=== PATIENT | male | born 1995 | race Caucasian/White ===

== ENCOUNTER 2021-09-13 17:30 | Emergency (ER) | payer SELFPAY ==
[2021-09-13 17:37] VITALS: BP 117/61; PULSE 80; RESP 16; TEMP 36.7; O2SAT 97
--- NOTE | 2021-09-13 18:35 | ED.GENADULT ---
HPI - General Adult General Chief complaint: Unspecified Stated complaint: headache, seizure coming on? Time Seen by Provider: 09/13/21 18:35 History of Present Illness HPI narrative: Patient is a 26-year-old male complaining of a migraine headache, 6 out of 10, frontal head, accompanied by photophobia that started today. Patient states that he has a history of seizure but has not had one in the last 10 years and not on any seizure medication. Patient is worried that he might have had a seizure due to the above symptoms. Patient states that he just wants to make sure and that is why he is here. Patient denies any dizziness, speech or visual disturbance, weakness, numbness, unsteady gait, chest pain, shortness of breath, abdominal pain, nausea, vomiting, diarrhea, fever or chills. Related Data Allergies Allergy/AdvReac Type Severity Reaction Status Date / Time Penicillins Allergy Unknown Verified 09/13/21 18:55 Review of Systems Review of Systems: All systems reviewed & are unremarkable except as noted in HPI and below Constitutional: Constitutional: Denies body ache(s), Denies chills, Denies excessive sweating, Denies fatigue, Denies fever(s), Denies lethargy, Denies malaise, Denies weakness and Denies weight loss Eyes: Eyes: Denies blurry vision, Denies change in vision and Denies loss of vision ENT: Denies dizziness, Denies ear discharge, Denies headache(s), Denies lip swelling, Denies epistaxis, Denies nasal congestion, Denies neck pain, Denies throat swelling and Denies tongue swelling Cardiovascular: Cardiovascular: Denies chest pain, Denies chest pain at rest, Denies chest pain with activity, Denies diaphoresis, Denies rapid heart rate, Denies edema, Denies irregular heart rhythm, Denies lightheadedness, Denies palpitations, Denies dyspnea and Denies dyspnea on exertion Respiratory: Respiratory: Denies chest congestion, Denies cough, Denies hemoptysis, Denies dyspnea and Denies dyspnea on exertion Gastrointestinal: Gastrointestinal: Denies abdominal pain, Denies melena, Denies hematochezia, Denies diarrhea, Denies nausea, Denies vomiting and Denies hematemesis Musculoskeletal: Musculoskeletal: Denies abnormal gait, Denies deformity, Denies joint swelling, Denies limited range of motion, Denies neck pain and Denies numbness Neurologic: Denies Abnormal speech present, Denies abnormal gait, Denies confusion, Denies dizziness, Denies focal weakness, Denies loss of vision, Denies numbness, Denies Other visual disturbances, Denies Sensory deficit (Neuro) and Denies weakness Psychiatric: Psychiatric: Denies confusion, Denies depression, Denies auditory hallucinations, Denies homicidal ideation and Denies suicidal ideation Endocrine: Endocrine: Denies cold intolerance, Denies excessive sweating, Denies fatigue, Denies heat intolerance and Denies palpitations Hematologic/Lymphatic: Hematologic/Lymphatic: Denies easy bleeding and Denies easy bruising Allergic/Immunologic: Allergic/Immunologic: Denies lip swelling, Denies throat swelling and Denies tongue swelling PMFSH Comments Past medical history: None Family history: None Social history: Non-smoker no EtOH or drug use Exam Const: General: cooperative, healthy appearing, comfortable, no acute distress, well developed, alert and awake; No confusion Orientation/consciousness: oriented to person, oriented to place, oriented to time, patient oriented x3 and No confusion Limitations: no limitations HENMT: Head: normal to inspection, normocephalic and atraumatic Ears: hearing grossly normal bilaterally, TM normal on the right and TM normal on the left General nose exam: Normal external nose present, Normal nares present and No nasal discharge present Face and sinus: normal facial exam Mouth: Yes Normal oral and palatal mucosa present, Yes lip normal, Yes tongue normal and Yes oropharynx normal Throat: posterior oropharynx normal, tonsils normal and uvula midline Eyes: General: appearanc
[2021-09-13] MEDS: LACTATED RINGERS 1,000 ML 999 ML IV CONT (19:05)
[2021-09-13] MEDS: METOCLOPRAMIDE HCL INJ 10 MG/2 ML VIAL (19:05)
[2021-09-13] MEDS: KETOROLAC 30 MG/ML VIAL (*BKC) (19:06)
[2021-09-13] MEDS: diphenhydrAMINE HCl INJ 50 MG/ML VIAL (19:06)
--- NOTE | 2021-09-13 19:21 | PC.NURSE ---
JUAREZ FROM DR NOE FOR TORADOL 30 MG IVP, REGLAN 10 MG IVP AND BENADRYL 25 MG IVP X1
[2021-09-13 19:34] LABS: Basophils Absolute Auto 0.1 K/mm3 (0.0-0.1); Basophils Percent Auto 0.9 % (0.2-1.2); Eosinophils Absolute Auto 0.3 K/mm3 (0-0.3); Hematocrit 37.8 % (42.0-52.0); Immature Granulocyte Absolute 0.02 K/mm3 (0.00-0.031); Immature Granulocyte Percent A 0.3 % (0-0.5); Lymphocytes Absolute Auto 0.29 K/mm3 (0.9-3.2); Lymphocytes Percent Auto 3.9 % (18.3-44.2); Mean Corpuscular HGB Conc 34.4 g/dl (32-36); Mean Corpuscular Hemoglobin 32.6 pg (26-34); Mean Corpuscular Volume 94.7 fl (80-100); Mean Platelet Volume 9.2 fl (7.4-10.4); Monocytes Absolute Auto 0.6 K/mm3 (0.1-0.6); Neutrophils Absolute Auto 6.2 K/mm3 (1.3-6.7); Neutrophils Percent Auto 82.9 % (45.5-73.1); Platelet Count Result 187 k/mm3 (150-375); Red Blood Count 3.99 M/mm3 (4.6-6.20); White Blood Count 7.5 K/mm3 (4.5-10.0)
[2021-09-13 19:41] LABS: Alanine Aminotransferase 88 U/L (4-50); Albumin Level 4.4 g/dL (3.5-5.1); Alkaline Phosphatase 58 U/L (38-126); Anion Gap 4 mmol/L (8-16); Aspartate Amino Transferase 75 U/L (17-59); Bilirubin,Total 0.5 mg/dL (0.2-1.3); Blood Urea Nitrogen 16 mg/dL (9-20); Calcium 9.2 mg/dL (8.4-10.2); Carbon Dioxide 23 mmol/L (22-30); Chloride 107 mmol/L (98-107); Estimated CRCL calculation 112 ml/min; Estimated Glomerular Filt Rate > 60; Glucose 106 mg/dL (65-110); Potassium 4.4 mmol/L (3.4-5.0); Sodium 134 mmol/L (137-145)
[2021-09-13 20:40] VITALS: BP 132/86; PULSE 88; RESP 15; O2SAT 99
--- NOTE | 2021-09-18 11:20 | PC.NURSE ---
LATE ENTRY This note is being entered to document information to the patient's record. The following information was omitted on [09/13/21], by [FELI Chance]. LR START AT 1838 END 193
== END 2021-09-13 21:05 | disposition home or self-care (01) ==
PROVIDERS: Emergency Provider Emergency Medicine
DX: R51.9 Headache, unspecified (principal)
CPT/HCPCS: 36415; 80053; 85025; 96374; 96375; 99284; J1200; J1885; J2765; J7120

== ENCOUNTER 2022-07-17 05:59 | Emergency (ER) | payer OTHER, SELFPAY ==
--- NOTE | ~2022-07-17 | CT_ITS ---
EXAMINATION: CT abdomen pelvis w con DATE: 07/17/2022 07:01 INDICATION: Abdominal pain TECHNIQUE: Computed tomography (CT) of the abdomen and pelvis was performed with 100 mL Omnipaque-350 intravenous contrast. Automated exposure control and iterative reconstruction technique were employe d. The dose-length product was 271.83 mGy-cm. COMPARISON: None FINDINGS: Lung bases are clear. Heart size is normal. No pericardial or pleural effusion. Liver, gallbladder, s pleen, pancreas, bilateral adrenal glands and kidneys are normal. Mild wall thickening of the bladder likely due to incomplete distention. Bowels including the appendix are normal. No free intraperitone al gas or fluid. No pathologically enlarged abdominal or pelvic lymphadenopathy. Bones are unremarkab le. IMPRESSION: 1. Mild bladder wall thickening likely due to incomplete distention but would correlate with urinalys is to exclude cystitis. 2. No other acute intra-abdominal/pelvic process. Normal appendix. Reviewed, dictated and finalized at location A. IMPRESSION: 1. Mild bladder wall thickening likely due to incomplete distention but would c orrelate with urinalysis to exclude cystitis. 2. No other acute intra-abdominal/pelvic process. Normal appendix.
[2022-07-17 06:05] VITALS: BP 130/85; PULSE 64; RESP 16; TEMP 36.6; O2SAT 100
--- NOTE | 2022-07-17 06:17 | ED.GENADULT ---
HPI - General Adult General Chief complaint: Abdominal Pain <Getachew Mobley MD - Last Filed: 07/17/22 06:35> Stated complaint: abdominal pain <Getachew Mobley MD - Last Filed: 07/17/22 06:35> Time Seen by Provider: 07/17/22 06:11 <Getachew Mobley MD - Last Filed: 07/17/22 06:35> History of Present Illness HPI narrative: Patient with 6-year-old gentleman who presents the emergency department with chief complaint of abdominal pain and nausea and vomiting and he woke up started having severe pain in his abdomen. Patient reports the pain is worse with movement and improved with rest. Reports the symptoms or not improved by anything. <Getachew Mobley MD - Last Filed: 07/17/22 06:35> Related Data Allergies/adverse reactions: Allergies Allergy/AdvReac Type Severity Reaction Status Date / Time Penicillins Allergy Unknown Verified 07/17/22 06:21 <Getachew Mobley MD - Last Filed: 07/17/22 06:35> Review of Systems Review of Systems: A 10 system review of systems was completed on the patient and is negative except for what is stated in the HPI. Nursing and ancillary documentation was reviewed. <Getachew Mobley MD - Last Filed: 07/17/22 06:35> Exam Narrative: GENERAL: Well-appearing, well-nourished, and in no acute distress. HEAD: Normocephalic, atraumatic. EYES: PERRLA and EOMI. ENT: Nares clear, no rhinorrhea or epistaxis. Mucous membranes moist. NECK: Supple. CHEST: Clear to auscultation. No respiratory distress. HEART: Regular rate and rhythm. No murmur heard. Normal peripheral pulses. ABDOMEN: Soft, tender to palpation lower quadrants of the abdomen, nondistended, normal active bowel sounds. EXTREMITIES: Normal range of motion. No edema. SKIN: Warm, dry, no rash. NEURO: No focal deficits. Alert and oriented x3. PSYCH: Normal mood and affect. <Getachew Mobley MD - Last Filed: 07/17/22 06:35> Course Course Emergency Course: Laboratory studies have been ordered CT scan of the abdomen pelvis and urinalysis also been ordered. Normal saline bolus has been ordered and antiemetics and antispasmodics have also been ordered. I will be signing out care to the day provider for final diagnosis and disposition <Getachew Mobley MD - Last Filed: 07/17/22 06:35> Vital Signs Vital signs: Vital Signs Temperature 36.6 C 07/17/22 06:05 Pulse Rate 64 07/17/22 06:05 Respiratory Rate 16 07/17/22 06:05 Blood Pressure 130/85 07/17/22 06:05 Pulse Oximetry 100 07/17/22 06:05 Oxygen Delivery Room Air 07/17/22 06:05 Temperature 36.6 C 07/17/22 06:05 Pulse Rate 42 L 07/17/22 09:59 Respiratory Rate 18 07/17/22 09:59 Blood Pressure 109/61 07/17/22 09:59 Pulse Oximetry 99 07/17/22 09:59 Oxygen Delivery Room Air 07/17/22 06:05 <Getachew Mobley MD - Last Filed: 07/17/22 06:35> Vital Signs Temperature 36.6 C 07/17/22 06:05 Pulse Rate 64 07/17/22 06:05 Respiratory Rate 16 07/17/22 06:05 Blood Pressure 130/85 07/17/22 06:05 Pulse Oximetry 100 07/17/22 06:05 Oxygen Delivery Room Air 07/17/22 06:05 Temperature 36.6 C 07/17/22 06:05 Pulse Rate 42 L 07/17/22 09:59 Respiratory Rate 18 07/17/22 09:59 Blood Pressure 109/61 07/17/22 09:59 Pulse Oximetry 99 07/17/22 09:59 Oxygen Delivery Room Air 07/17/22 06:05 <Micheal Santana MD - Last Filed: 07/17/22 10:38> Medical Decision Making Vital Signs Vital Signs: Vital Signs Temperature 36.6 C 07/17/22 06:05 Pulse Rate 64 07/17/22 06:05 Respiratory Rate 16 07/17/22 06:05 Blood Pressure 130/85 07/17/22 06:05 Pulse Oximetry 100 07/17/22 06:05 Oxygen Delivery Room Air 07/17/22 06:05 Temperature 36.6 C 07/17/22 06:05 Pulse Rate 42 L 07/17/22 09:59 Respiratory Rate 18 07/17/22 09:59 Blood Pressure 109/61 07/17/22 09:59 Pulse Oximetry 99 07/17
[2022-07-17] MEDS: ONDANSETRON INJ 4 MG/2 ML VIAL IV PUSH (06:20)
[2022-07-17] MEDS: SODIUM CHLORIDE 0.9% IV 1,000 ML 999 ML IV CONT (06:22)
[2022-07-17 06:30] LABS: Basophils Absolute Auto 0.1 K/mm3 (0.0-0.1); Basophils Percent Auto 0.4 % (0.2-1.2); Eosinophils Absolute Auto 0.3 K/mm3 (0-0.3); Eosinophils Percent Auto 1.9 % (0-4.4); Hematocrit 37.5 % (42.0-52.0); Hemoglobin 13.6 g/dL (14.0-18.0); Immature Granulocyte Absolute 0.08 K/mm3 (0.00-0.031); Immature Granulocyte Percent A 0.5 % (0-0.5); Lymphocytes Absolute Auto 1.97 K/mm3 (0.9-3.2); Lymphocytes Percent Auto 11.2 % (18.3-44.2); Mean Corpuscular HGB Conc 36.3 g/dl (32-36); Mean Corpuscular Hemoglobin 31.6 pg (26-34); Mean Platelet Volume 9.2 fl (7.4-10.4); Monocytes Absolute Auto 1.5 K/mm3 (0.1-0.6); Monocytes Percent Auto 8.3 % (2.6-8.5); Neutrophils Absolute Auto 13.6 K/mm3 (1.3-6.7); Neutrophils Percent Auto 77.7 % (45.5-73.1); Platelet Count Result 235 k/mm3 (150-375); Red Blood Count 4.31 M/mm3 (4.6-6.20); White Blood Count 17.5 K/mm3 (4.5-10.0)
[2022-07-17 06:32] VITALS: PULSE 45; RESP 16; O2SAT 100
[2022-07-17 06:32] LABS: Alanine Aminotransferase 17 U/L (6-50); Albumin Level 4.8 g/dL (3.5-5.1); Alkaline Phosphatase 92 U/L (38-126); Anion Gap 11 mmol/L (8-16); Aspartate Amino Transferase 26 U/L (17-59); Bilirubin,Total 0.7 mg/dL (0.2-1.3); Blood Urea Nitrogen 13 mg/dL (9-20); Calcium 8.9 mg/dL (8.4-10.2); Carbon Dioxide 20 mmol/L (22-30); Chloride 105 mmol/L (98-107); Estimated CRCL calculation 102 ml/min; Estimated Glomerular Filt Rate > 60; Glucose 137 mg/dL (65-110); Lipase 203 U/L (23-300); Potassium 3.8 mmol/L (3.4-5.0); Sodium 136 mmol/L (137-145)
[2022-07-17] MEDS: DICYCLOMINE HCL INJ 20 MG/2 ML VIAL IM (06:33)
--- NOTE | 2022-07-17 06:44 | ECG_ITS ---
Measurements Intervals [place] Rate: 38 P: 16 WV: 152 QRS: 81 QRSD: 96 T: 64 QT: 463 QTc: 369 Interpretive Statements SINUS BRADYCARDIA RSR' V1 AND V2 BORDERLINE ECG NO PREVIOUS ECG AVAILABLE FOR COMPARISON Electronically Signed On 07-17-2022 16:41:29 CDT by Sachin Lozano M.D.
--- NOTE | 2022-07-17 06:49 | PC.NURSE ---
1st EKG at [address] Mobley; requested retake of EKG.
[2022-07-17 07:02] VITALS: PULSE 58; RESP 26; O2SAT 91
--- NOTE | 2022-07-17 07:12 | PC.NURSE ---
Report given to OH Riddle.
[2022-07-17 07:30] VITALS: BP 108/71; PULSE 43; RESP 12; O2SAT 100
--- NOTE | 2022-07-17 08:52 | PC.NURSE ---
Lab called and states they need a new urine sample from pt. asked pt for another urine sample. pt states he is unable to go at this time and is declining straight catheter. urinal placed at bedside.
[2022-07-17 09:59] VITALS: BP 109/61; PULSE 42; RESP 18; O2SAT 99
--- NOTE | 2022-07-17 10:03 | PC.NURSE ---
new urine sample sent to lab.
[2022-07-17 10:17] LABS: Add Urine Microscopic? YES; Appearance Urine Clear (Clear); Bilirubin Urine Negative (Negative); Blood Urine Negative (Negative); Color Urine Yellow (Yellow); Glucose Urine UA Negative (Negative); Ketones Urine 1+ mg/dL (Negative); Leukocyte Esterase Ur Negative LEU/UL (Negative); Mucus Urine Rare /lpf; Nitrate Urine Negative (Negative); Protein Urine Negative (Negative); Squamous Epithelial Cell Urine Rare /hpf (Few); WBC Urine 0-3 /hpf
[2022-07-17 10:20] LABS: Specific Grav Ur 1.012 (1.001-1.035)
[2022-07-17 10:45] VITALS: BP 109/63; PULSE 51; RESP 14; O2SAT 99
== END 2022-07-17 10:47 | disposition home or self-care (01) ==
PROVIDERS: Emergency Medicine; Emergency Provider Emergency Medicine
DX: R10.9 Unspecified abdominal pain (principal); R11.10 Vomiting, unspecified
CPT/HCPCS: 36415; 74177; 80053; 81001; 83690; 85025; 93005; 96361; 96372; 96374; 99284; J0500; J2405; J7030; Q9967

== ENCOUNTER 2022-07-20 18:08 | Emergency (ER) | payer OTHER, SELFPAY ==
--- NOTE | ~2022-07-20 | XR_ITS ---
EXAM: XR abdomen/kub 1V DATE: 07/20/2022 20:46 HISTORY: constipation, LEFT SIDED PAIN, PROGRESSIVELY GETTING WORSE . COMPARISON: None available. FINDINGS: Clear lung bases. Normal bowel gas pattern. No organomegaly. No abnormal abdominal calcifi cation. Regional bones and soft tissues normal for age. IMPRESSION: No radiographic evidence of obstruction or ileus. Reviewed, dictated and finalized at location K.
[2022-07-20 18:18] VITALS: BP 123/71; PULSE 52; RESP 17; TEMP 37; O2SAT 100
[2022-07-20 18:45] LABS: Basophils Absolute Auto 0.1 K/mm3 (0.0-0.1); Basophils Percent Auto 0.5 % (0.2-1.2); Eosinophils Percent Auto 0.1 % (0-4.4); Hematocrit 41.4 % (42.0-52.0); Hemoglobin 13.7 g/dL (14.0-18.0); Immature Granulocyte Absolute 0.04 K/mm3 (0.00-0.031); Immature Granulocyte Percent A 0.4 % (0-0.5); Lymphocytes Percent Auto 11.9 % (18.3-44.2); Mean Corpuscular HGB Conc 33.1 g/dl (32-36); Mean Corpuscular Hemoglobin 30.9 pg (26-34); Mean Corpuscular Volume 93.5 fl (80-100); Mean Platelet Volume 9.2 fl (7.4-10.4); Monocytes Absolute Auto 0.6 K/mm3 (0.1-0.6); Monocytes Percent Auto 5.5 % (2.6-8.5); Neutrophils Absolute Auto 8.3 K/mm3 (1.3-6.7); Neutrophils Percent Auto 81.6 % (45.5-73.1); Platelet Count Result 267 k/mm3 (150-375); Red Blood Count 4.43 M/mm3 (4.6-6.20); White Blood Count 10.1 K/mm3 (4.5-10.0)
[2022-07-20 18:46] LABS: Alanine Aminotransferase 18 U/L (6-50); Albumin Level 4.5 g/dL (3.5-5.1); Alkaline Phosphatase 59 U/L (38-126); Anion Gap 10 mmol/L (8-16); Aspartate Amino Transferase 20 U/L (17-59); Bilirubin,Total 0.6 mg/dL (0.2-1.3); Blood Urea Nitrogen 14 mg/dL (9-20); Carbon Dioxide 26 mmol/L (22-30); Chloride 101 mmol/L (98-107); Estimated CRCL calculation 92 ml/min; Estimated Glomerular Filt Rate > 60; Glucose 120 mg/dL (65-110); Lipase 41 U/L (23-300); Sodium 137 mmol/L (137-145)
--- NOTE | 2022-07-20 20:31 | ED.ABDPAIN ---
HPI - Abdominal Pain General Chief Complaint: Abdominal Pain Stated Complaint: abd pain Time Seen by Provider: 07/20/22 20:23 History of Present Illness HPI narrative: Pt presents with intermittent LLQ pain for several days. Pt says the pain comes and goes. Pt has not had BM for 4 days. Pt was seen here a couple of days ago and had work up including CT. Pt has some nausea. Pt denies fever. Pt said pain recurred today about two hours after eating. Related Data Allergies Allergy/AdvReac Type Severity Reaction Status Date / Time Penicillins Allergy Unknown Verified 07/17/22 06:21 Review of Systems Review of Systems: All systems reviewed & are unremarkable except as noted in HPI and below Exam Const: General: healthy appearing and no acute distress Nutritional Appearance: well nourished Orientation/consciousness: patient oriented x3 Limitations: no limitations HENMT: Mouth: Yes Normal oral and palatal mucosa present Resp: Effort & Inspection: normal respiratory effort Auscultation: clear to auscultation bilaterally Cardio: Rate: regular rate Rhythm: regular rhythm GI: GI Palp: Yes Soft to palpation and Yes Tenderness to palpation present (GI) (minimal LLQ no guarding or rebound) Auscultation: normal bowel sounds Skin: General skin exam: normal color Rashes: no rashes Neuro: General: patient oriented x3, moves all extremities and no focal motor deficits Speech: normal speech Extrem: General: normal to inspection and no clubbing, cyanosis or edema Psych: Mental Status: mental status grossly normal Affect: normal affect Attitude: cooperative Course Course Emergency Course: talked to patient about repeating CT vs getting plain film x ray to check for constipation. Given intermittent nature of pain is less likely to be surgical. Pt would like to get the x ray and not the CT. Vital Signs Vital signs: Vital Signs Temperature 98.6 F 07/20/22 18:18 Pulse Rate 52 L 07/20/22 18:18 Respiratory Rate 17 07/20/22 18:18 Blood Pressure 123/71 07/20/22 18:18 Pulse Oximetry 100 07/20/22 18:18 Oxygen Delivery Room Air 07/20/22 18:18 Temperature 98.6 F 07/20/22 18:18 Pulse Rate 52 L 07/20/22 18:18 Respiratory Rate 17 07/20/22 18:18 Blood Pressure 123/71 10/31/22 18:18 Pulse Oximetry 100 07/20/22 18:18 Oxygen Delivery Room Air 07/20/22 18:18 MDM - Abdominal Pain Lab Data Result diagrams: 07/20/22 18:25 07/20/22 18:25 Labs: Lab Results 07/20/22 07/20/22 07/20/22 Range/Units 18:25 18:25 20:31 WBC 10.1 H (4.5-10.0) K/mm3 RBC 4.43 L (4.6-6.20) M/mm3 Hgb 13.7 L (14.0-18.0) g/dL Hct 41.4 L (42.0-52.0) % MCV 93.5 D (80-100) fl MCH 30.9 (26-34) pg MCHC 33.1 (32-36) g/dl RDW 12.0 (11.5-14.5) % Plt Count 267 (150-375) k/mm3 MPV 9.2 (7.4-10.4) fl Immature Gran % (Auto) 0.4 (0-0.5) % Neut % (Auto) 81.6 H (45.5-73.1) % Lymph % (Auto) 11.9 L (18.3-44.2) % [place] % (Auto) 5.5 (2.6-8.5) % Eos % (Auto) 0.1 (0-4.4) % Baso % (Auto) 0.5 (0.2-1.2) % Lymph # (Auto) 1.20 (0.9-3.2) K/mm3 [place] # (Auto) 0.6 (0.1-0.6) K/mm3 Eos # (Auto) 0.0 (0-0.3) K/mm3 Baso # (Auto) 0.1 (0.0-0.1) K/mm3 Abs Immat Gran (auto) 0.04 H (0.00-0.031) K/mm3 Absolute Neuts (auto) 8.3 H (1.3-6.7) K/mm3 Absolute Nucleated RBC 0.0 (0.0-0.012) K/mm3 Nucleated RBC % 0.0 (0.0-0.2) % Sodium 137 (137-145) mmol/L Potassium 4.0 (3.4-5.0) mmol/L Chloride 101 (98-107) mmol/L Carbon Dioxide 26 (22-30) mmol/L Anion Gap 10 (8-16) mmol/L BUN 14 (9-20) mg/dL Creatinine 1.00 (0.7-1.3) mg/dL Estim Creat Clear Calc 92 ml/min Estimated GFR > 60 (59 - ) Glucose 120 H (65-110) mg/dL Calcium 9.0 (8.4-10.2) mg/dL Total Bilirubin 0.6 (0.2-1.3) mg/dL AST 20 (17-59) U/L ALT 18 (6-50) U/L Alkaline Phosphatase 59 (38
[2022-07-20] MEDS: KETOROLAC 15 MG/ML VIAL (*BKC) IV PUSH (20:51)
[2022-07-20] MEDS: DICYCLOMINE HCL 10 MG CAPSULE 20 MG PO (20:52)
[2022-07-20 21:05] LABS: Appearance Urine Clear (Clear); Bilirubin Urine 1+ (Negative); Blood Urine Negative (Negative); Color Urine Yellow (Yellow); Glucose Urine UA Negative (Negative); Ketones Urine 2+ mg/dL (Negative); Leukocyte Esterase Ur Negative LEU/UL (Negative); Nitrate Urine Negative (Negative); Protein Urine 1+ mg/dL (Negative)
[2022-07-20 21:08] LABS: Add Urine Microscopic? YES; Mucus Urine Heavy /lpf; Squamous Epithelial Cell Urine Rare /hpf (Few); WBC Urine 0-3 /hpf
== END 2022-07-20 21:20 | disposition home or self-care (01) ==
PROVIDERS: Emergency Provider Emergency Medicine
DX: K59.00 Constipation, unspecified (principal)
CPT/HCPCS: 36415; 74018; 80053; 81001; 83690; 85025; 96374; 99284; A9270; J1885

== ENCOUNTER 2022-12-23 19:16 | Emergency (ER) | payer BC, SELFPAY ==
[2022-12-23 19:32] VITALS: BP 120/67; PULSE 74; RESP 18; TEMP 36.6; O2SAT 99
--- NOTE | 2022-12-23 19:48 | PC.NURSE ---
Dr. Tello at bedside to assess pt.
--- NOTE | 2022-12-23 20:26 | ED.WOUNDLAC ---
HPI - Wound/Laceration General Chief Complaint: Wound/Laceration Stated Complaint: lac Time Seen by Provider: 12/23/22 19:42 Source: patient and RN notes reviewed Mode of arrival: ambulatory Limitations: no limitations History of Present Illness HPI narrative: This is a 27 year old male who presents for evaluation of left eyebrow laceration. He states he was hit with softball. He denies headache, LOC, dizziness, eye change or blurred vision. He is unsure of his last tetanus but he does not want one today. Related Data Allergies Allergy/AdvReac Type Severity Reaction Status Date / Time Penicillins Allergy Unknown Verified 07/17/22 06:21 Review of Systems Review of Systems: All systems reviewed & are unremarkable except as noted in HPI and below PMFSH Past Medical History Medical History (Updated 12/23/22 @ 21:09 by Martha Tello MD) Patient denies medical problems Surgical History Surgical History (Updated 12/23/22 @ 20:28 by Martha eTllo MD) No pertinent past surgical history Social History Social History (Updated 12/23/22 @ 20:28 by Martha Tello MD) Smoking status: Never smoker Exam Const: General: no acute distress and alert Nutritional Appearance: well nourished Orientation/consciousness: patient oriented x3 HENMT: Head: laceration (left eyebrow laceration) Ears: external ears normal Mouth: Yes Normal oral and palatal mucosa present and Yes lip normal Teeth and gingiva: dentition normal Throat: posterior oropharynx normal and uvula midline Eyes: Conjunctivae: conjunctivae normal Pupils: Equal, round and reactive pupils present EOM: EOMs intact bilaterally Neck: Neck: normal visual inspection Chest: Chest palpation & inspection: normal inspection of the chest Resp: Effort & Inspection: normal respiratory effort Skin: Other: left eye brow laceration Neuro: General: patient oriented x3, moves all extremities and CN's II-XI intact bilaterally Psych: Mental Status: mental status grossly normal Affect: normal affect Attitude: cooperative Course Reevaluation(s) Date: 12/23/22 Time: 21:07 Vital Signs Vital signs: Vital Signs Temperature 97.9 F 12/23/22 19:32 Pulse Rate 74 12/23/22 19:32 Respiratory Rate 18 12/23/22 19:32 Blood Pressure 120/67 04/05/23 19:32 Pulse Oximetry 99 12/23/22 19:32 Oxygen Delivery Room Air 12/23/22 19:32 Temperature 97.9 F 12/23/22 19:32 Pulse Rate 68 12/23/22 21:24 Respiratory Rate 16 12/23/22 21:24 Blood Pressure 110/60 12/23/22 21:24 Pulse Oximetry 99 12/23/22 21:24 Oxygen Delivery Room Air 12/23/22 19:32 Procedures Laceration Laceration 1: Date: 12/23/22 Time: 21:07 Site: face (left eyebrow) Side (If applicable): left Size (cm): 3 Description: linear Depth: simple, single layer Local Anesthetic: lidocaine 1% and with epi Amount of anesthesia used (mL): 2 Pre-repair: wound explored and irrigated ====== Skin Level ====== Skin layer closed with: other (fast absorbing gut) Size (cm): 5-0 Number of sutures: 6 Technique: simple, interrupted ====== Subcutaneous Layer ====== ====== Muscle Layer ====== ====== Tendon Layer ====== Discharge Plan Discharge Clinical Impression: Laceration of eyebrow, left Patient Disposition: Home, Self-Care Condition: Stable Instructions: Antibiotic Form, Care For Your Absorbable Stitches (ED), Acute Wounds (ED) Additional Instructions: Keep wound clean. watch for signs of infection. read discharge instructions. Prescriptions: No Action magnesium citrate [Citrate of Magnesia] Solution 300 ml PO ONCE Qty: 296 0RF Rx Instructions: as a single dose dicyclomine 20 mg tablet 20 mg PO QID Qty: 20 0RF ondansetron 4 mg tablet,disintegrating 4 mg PO Q4H Qty: 10 0RF Rx Instructions: 1st dose 1-2 hr
[2022-12-23] MEDS: LIDO 1%/EPINEPHRINE 1:100,000 10 ML VIAL 2 ML INFILTRATE (20:47)
[2022-12-23] MEDS: LIDO 1%/EPINEPHRINE 1:100,000 20 ML VIAL INFILTRATE (20:57)
[2022-12-23 21:24] VITALS: BP 110/60; PULSE 68; RESP 16; O2SAT 99
== END 2022-12-23 21:25 | disposition home or self-care (01) ==
LOC: ANHED 21:09
PROVIDERS: Emergency Provider General Practice
DX: S01.112A Laceration without foreign body of left eyelid and periocular area, initial encounter (principal); W21.07XA Struck by softball, initial encounter
CPT/HCPCS: 12013; 99282